=== PATIENT | male | born 1945 | race Caucasian/White ===

== ENCOUNTER 2016-10-13 21:49 | Emergency (ER) | payer MEDICARE, OTHER ==
[2016-10-13 21:58] VITALS: BP 175/107; PULSE 94; RESP 18; TEMP 98.2; O2SAT 96
[2016-10-13] MEDS ORDERED: SIMV20TA PO (22:03)
[2016-10-13] MEDS ORDERED: VERA40TA PO (22:03)
--- NOTE | 2016-10-13 22:17 | PD ---
HPI Chief Complaint: Psychiatric Symptoms Time Seen by Provider: 22:14 Travel History International Travel<30 days: No Contact w/Intl Traveler<30days: No Traveled to known affect area: No History of Present Illness HPI 71-year-old male that presents to the ED for evaluation of psych. Patient was [place] acted by police after apparently he made suicidal statements to the daughter. Per patient he is suffering from some coordination as well as back and neck issues. Per patient he is getting some MRIs to get evaluated for this by his doctor and he mentioned to the daughter that if the tests were negative he was given a kill himself. He states that he did not really mean this as a threat for more as a statement of not liking to be in some much discomfort as well as having issues with his coordination. He denies any actual plan. He denies any homicidal ideation. No drugs or alcohol. Patient is stable me that he has a history of brain surgery 2 years ago. No other medical issues. He does have a history of hypertension and high cholesterol. Denies any symptoms to me at this time. Per patient his been ongoing since having his coordination and pain in his back and neck. PFSH Past Medical History Cardiovascular Problems: Yes High Cholesterol: Yes Hypertension: Yes Past Surgical History Neurologic Surgery: Yes (NEURALGIA) Other Surgery: Yes (R BIG TOE) Social History Alcohol Use: No Tobacco Use: No Substance Use: No Allergies-Medications (Allergen,Severity, Reaction): Coded Allergies: No Known Allergies (Unverified , 10/13/16) Reported Meds & Prescriptions Reported Meds & Active Scripts Active Reported Verapamil (Verapamil HCl) 40 Mg Tab 40 Mg PO BID Simvastatin 20 Mg Tab 20 Mg PO HS Review of Systems Except as stated in HPI: all other systems reviewed are Neg Physical Exam Narrative GENERAL: SKIN: Warm and dry. HEAD: Atraumatic. Normocephalic. EYES: Pupils equal and round. No scleral icterus. No injection or drainage. ENT: No nasal bleeding or discharge. Mucous membranes pink and moist. Tongue is midline. No uvula deviation. NECK: Trachea midline. No JVD. CARDIOVASCULAR: Regular rate and rhythm. No murmurs, S3, S4. RESPIRATORY: No accessory muscle use. Clear to auscultation. Breath sounds equal bilaterally. GASTROINTESTINAL: Abdomen soft, non-tender, nondistended. Hepatic and splenic margins not palpable. MUSCULOSKELETAL: Extremities without clubbing, cyanosis, or edema. No obvious deformities. Full range of motion of the upper and lower extremities bilaterally. 2+ pulses bilaterally. NEUROLOGICAL: Awake and alert. No obvious cranial nerve deficits. Motor grossly within normal limits. Five out of 5 muscle strength in the arms and legs. Normal speech. PSYCHIATRIC: Appropriate mood and affect; insight and judgment normal. Data Data Last Documented VS Vital Signs Date Time Temp Pulse Resp B/P Pulse Ox O2 Delivery O2 Flow Rate FiO2 10/13/16 21:58 98.2 94 18 175/107 96 Orders Complete Blood Count With Diff (10/13/16 21:55) Comprehensive Metabolic Panel (10/13/16 21:55) Psych Screen (10/13/16 21:55) Drug Screen, Random Urine (10/13/16 21:55) Alcohol (Ethanol) (10/13/16 21:55) Labs Laboratory Tests Test 10/13/16 22:10 White Blood Count 8.2 TH/MM3 Red Blood Count 4.94 MIL/MM3 Hemoglobin 14.6 GM/DL Hematocrit 42.5 % Mean Corpuscular Volume 85.9 FL Mean Corpuscular Hemoglobin 29.5 PG Mean Corpuscular Hemoglobin 34.3 % Concent Red Cell Distribution Width 14.1 % Platelet Count 249 TH/MM3 Mean Platelet Volume 9.2 FL Neutrophils (%) (Auto) 58.5 % Lymphocytes (%) (Auto) 31.9 % Monocytes (%) (Auto) 6.9 % Eosinophils (%) (Auto) 1.9 % Basophils (%) (Auto) 0.8 % Neutrophils # (Auto) 4.8 TH/MM3 Lymphocytes # (Auto) 2.6 TH/MM3 Monocytes # (Auto) 0.6 TH/MM3 Eosinophils # (Auto) 0.2 TH/MM3 Basophils # (Auto) 0.1 TH/MM3 CBC Comment DIFF FINAL Differential Comment Urine Opiates Screen NEG Urine Barbiturates Screen NEG Urine Amphetamines Screen NEG Urine Benzodiazepines Screen NEG Urine Cocaine Screen NEG Urine Cannabinoids Screen NEG MDM Medical Decision Making Medical Screen Exam Complete: Yes Emergency Medical Condition: Yes Medical Record Reviewed: Yes Interpretation(s) CBC Diagram 10/13/16 22:10 tox negative Differential Diagnosis Depression versus suicidal ideation versus anxiety versus adjustment disorder versus mood disorder versus bipolar disorder versus schizophrenia versus paranoid disorder versus psychosis versus substance abuse versus alcohol abuse versus alcohol induced psychosis versus homicidality addition versus cutting versus personality disorder Narrative Course 71-year-old male that presents to the ED for evaluation of psych. Patient was properly examined and was found to have signs and symptoms consistent with psychiatric illness. No sign of acute medical distress. Labs were drawn. Patient will be medically clear. Okay to be seen by psych. Mental health screening was discussed with the patient. Diagnosis Primary Impression: Suicidal ideation Raheem Maya October 13, 2016 22:17
[2016-10-13 22:19] LABS: AUTOMATED NEUTROPHIL # 4.8 TH/MM3 (1.8-7.7); BASOPHIL # 0.1 TH/MM3 (0-0.2); BASOPHIL % 0.8 % (0.0-2.0); EOSINOPHIL # 0.2 TH/MM3 (0-0.4); EOSINOPHIL % 1.9 % (0.0-4.0); HEMATOCRIT 42.5 % (39.0-51.0); HEMO FLAGS DIFF FINAL; LYMPH % 31.9 % (9.0-44.0); LYMPHOCYTE # 2.6 TH/MM3 (1.0-4.8); MEAN CELL VOLUME 85.9 FL (80.0-100.0); MEAN CORPUSCULAR HEMOGLOBIN 29.5 PG (27.0-34.0); MEAN CORPUSCULAR HGB CONC 34.3 % (32.0-36.0); MONO % 6.9 % (0.0-8.0); NEUT % 58.5 % (16.0-70.0); PLATELET COUNT 249 TH/MM3 (150-450); RED BLOOD COUNT 4.94 MIL/MM3 (4.50-5.90); RED CELL DISTRIBUTION WIDTH 14.1 % (11.6-17.2); WHITE BLOOD COUNT 8.2 TH/MM3 (4.0-11.0)
[2016-10-13 22:27] LABS: AMPHETAMINE, URINE NEG (NEG); BARBITURATES, URINE NEG (NEG); COCAINE, URINE NEG (NEG)
[2016-10-13 22:41] LABS: ALT (GPT) 37 U/L (12-78); ANION GAP 7 MEQ/L (5-15); AST (GOT) 22 U/L (15-37); BICARBONATE 26.1 MEQ/L (21.0-32.0); BLOOD UREA NITROGEN 21 MG/DL (7-18); CHLORIDE 108 MEQ/L (98-107); GLOMERULAR FILTRATION RATE 99 ML/MIN (>89); POTASSIUM 3.8 MEQ/L (3.5-5.1); SODIUM (NA) 141 MEQ/L (136-145)
[2016-10-13 22:43] LABS: ALKALINE PHOSPHATASE 127 U/L (45-117); TOTAL BILIRUBIN ADULT 0.4 MG/DL (0.2-1.0)
[2016-10-14 06:26] VITALS: BP 134/81; PULSE 86; RESP 16; O2SAT 99
[2016-10-14 11:50] VITALS: BP 141/78; PULSE 95; RESP 16; O2SAT 99
--- NOTE | 2016-10-14 15:12 | PD ---
History of Present Illness Chief Complaint: Psychiatric Symptoms Time Seen by Provider: 13:00 Travel History International Travel<30 Days: No Contact w/Intl Traveler<30days: No Known affected area: No Legal Status Legal Status: Biswas Act Bis[place] Act Signed By: History of Present Illness: 71-year-old male Zul[place] acted for "saying the wrong thing". Patient is not suicidal. He is calm pleasant and cooperative. This physician feels his Biswas act was instituted inappropriately. PFSH Past Medical History Cardiovascular Problems: Yes High Cholesterol: Yes Hypertension: Yes Past Surgical History Neurologic Surgery: Yes (NEURALGIA) Other Surgery: Yes (R BIG TOE) Psychiatric History Psychiatric History Hx Psychiatric Treatment: Denied History of Inpatient Treatment: No Guns or firearms in home: No Social History Hx Alcohol Use: No Hx Tobacco Use: No Hx Substance Use: No Hx of Substance Use Treatment: No Allergies-Medications (Allergen,Severity, Reaction): Coded Allergies: No Known Allergies (Unverified , 10/13/16) Reported Meds & Prescriptions Reported Meds & Active Scripts Active Reported Verapamil (Verapamil HCl) 40 Mg Tab 40 Mg PO BID Simvastatin 20 Mg Tab 20 Mg PO HS Review of Systems Except as stated in HPI: all other systems reviewed are Neg Exam Alert: Yes Dewar: Person, Place, Date, Situation Mood: Calm Affect: Appropriate Speech: Clear, Logical Eye Contact: Normal Memory Intact: Immediate, Recent, Remote Insight/Judgement Intact [facility] Medical Decision Making Medical Record Reviewed: Yes Assessment/Plan Biswas act lifted so patient could go home. He does not wish inpatient psychiatric hospitalization and in this physician's opinion, he does not meet criteria for involuntary psychiatric hospitalization. Orders Complete Blood Count With Diff (10/13/16 21:55) Comprehensive Metabolic Panel (10/13/16 21:55) Psych Screen (10/13/16 21:55) Drug Screen, Random Urine (10/13/16 21:55) Alcohol (Ethanol) (10/13/16 21:55) Diet Regular Basic (10/14/16 Breakfast) Results Vital Signs Date Time Temp Pulse Resp B/P Pulse Ox O2 Delivery O2 Flow Rate FiO2 10/14/16 11:50 95 16 141/78 99 Room Air 10/14/16 06:26 86 16 134/81 99 Room Air 10/13/16 21:58 98.2 94 18 175/107 96 Laboratory Tests Test 10/13/16 22:10 White Blood Count 8.2 Red Blood Count 4.94 Hemoglobin 14.6 Hematocrit 42.5 Mean Corpuscular Volume 85.9 Mean Corpuscular Hemoglobin 29.5 Mean Corpuscular Hemoglobin 34.3 Concent Red Cell Distribution Width 14.1 Platelet Count 249 Mean Platelet Volume 9.2 Neutrophils (%) (Auto) 58.5 Lymphocytes (%) (Auto) 31.9 Monocytes (%) (Auto) 6.9 Eosinophils (%) (Auto) 1.9 Basophils (%) (Auto) 0.8 Neutrophils # (Auto) 4.8 Lymphocytes # (Auto) 2.6 Monocytes # (Auto) 0.6 Eosinophils # (Auto) 0.2 Basophils # (Auto) 0.1 CBC Comment DIFF FINAL Differential Comment Sodium Level 141 Potassium Level 3.8 Chloride Level 108 Carbon Dioxide Level 26.1 Anion Gap 7 Blood Urea Nitrogen 21 Creatinine 0.78 Estimat Glomerular Filtration 99 Rate Random Glucose 113 Calcium Level 9.4 Total Bilirubin 0.4 Aspartate Amino Transf 22 (AST/SGOT) Alanine Aminotransferase 37 (ALT/SGPT) Alkaline Phosphatase 127 Total Protein 7.8 Albumin 4.4 Urine Opiates Screen NEG Urine Barbiturates Screen NEG Urine Amphetamines Screen NEG Urine Benzodiazepines Screen NEG Urine Cocaine Screen NEG Urine Cannabinoids Screen NEG Ethyl Alcohol Level LESS THAN 3 Diagnosis Primary Impression: Adjustment disorder with mixed disturbance of emotions and conduct Departure Forms: Tests/Procedures Patient Instructions: General Instructions Disposition: 01 DISCHARGE HOME Condition: Stable Florian Whittaker MD October 14, 2016 15:12
== END 2016-10-14 13:53 | disposition home or self-care (01) ==
LOC: NEPE 21:49
DX: R45.851 Suicidal ideations (principal); F43.25 Adjustment disorder with mixed disturbance of emotions and conduct; I10 Essential (primary) hypertension; E78.00 Pure hypercholesterolemia, unspecified
CPT/HCPCS: 80053; 80307; 85025; 99283